=== PATIENT | male | born 1990 | race Caucasian/White ===

== ENCOUNTER 2018-07-08 15:27 | Emergency (ER) | payer OTHER ==
[2018-07-08] MEDS: CEFTRIAXONE 1 GM INJ IM (16:46)
[2018-07-08] MEDS: LIDOCAINE 1% (MPF) 5 ML VIAL SC (16:46)
[2018-07-08] MEDS ORDERED: LIDOCAINE 1% (MDV) 20 ML INJ SC (17:00)
== END 2018-07-08 17:20 | disposition home or self-care (01) ==
LOC: FTE 15:27
DX: H60.501 Unspecified acute noninfective otitis externa, right ear (principal)
CPT/HCPCS: 96372; 99284-25